=== PATIENT | male | born 1935 | race Caucasian/White ===

== ENCOUNTER 2016-08-03 09:56 | Emergency (ER) | payer MEDICARE, OTHER ==
[2016-08-03] MEDS ORDERED: Meclizine HCl 25 MG TAB ONE (10:50)
--- NOTE | 2016-08-03 11:57 | CT ---
CT BRAIN WITHOUT CONTRAST: Date: 08/03/16 HISTORY: Fall, dizziness. FINDINGS: Comparison made with exam of 09/06/14. No evidence of acute infarct, hemorrhage, midline shift, or abnormal extra-axial fluid collections a re seen. The ventricular size is stable and the basilar cisterns are patent. The bony calvarium is i ntact. The visualized paranasal sinuses and mastoid air cells are well aerated. IMPRESSION: No CT evidence of acute intracranial process. POS: OFF
== END 2016-08-03 11:50 | disposition home or self-care (01) ==
LOC: MADERS 09:56
DX: H81.10 Benign paroxysmal vertigo, unspecified ear (principal); I10 Essential (primary) hypertension; Z79.899 Other long term (current) drug therapy
CPT/HCPCS: 70450

== ENCOUNTER 2017-04-01 16:42 | Emergency (ER) | payer MEDICARE, OTHER ==
[2017-04-01] MEDS ORDERED: Amoxicillin/Potassium Clav 875 MG TAB ONE (18:19)
[2017-04-01] MEDS ORDERED: Benzonatate 100 MG CAP ONE (18:19)
[2017-04-01] MEDS ORDERED: Dexamethasone 4 MG TAB ONE (18:19)
== END 2017-04-01 18:20 | disposition home or self-care (01) ==
LOC: MADERS 16:42
DX: J40 Bronchitis, not specified as acute or chronic (principal); J32.9 Chronic sinusitis, unspecified; I10 Essential (primary) hypertension; Z79.899 Other long term (current) drug therapy
CPT/HCPCS: 99283; J8540

== ENCOUNTER 2018-04-21 14:52 | Outpatient (CLI) | payer MEDICARE, OTHER ==
--- NOTE | 2018-04-21 16:20 | RAD ---
SIX VIEWS CERVICAL SPINE: 04/21/18 INDICATION: Headache with neck pain. COMPARISON: None. FINDINGS: Cervical spine is evaluated at C7 level on the lateral projection. Swimmer lateral projection evaluates cervical spine up to C7-T1. There is moderate multil evel disc degenerative disease and multilevel facet osteoarthritic change. Prevertebral soft tissues are normal appearing. Lung apices are clear. Lateral masses are symmetric. 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 POS: [id number]
== END 2018-04-21 14:53 | disposition home or self-care (01) ==
LOC: MADRAD 14:52
PROVIDERS: ATTEND Family Medicine
DX: M54.2 Cervicalgia (principal); M47.812 Spondylosis without myelopathy or radiculopathy, cervical region
CPT/HCPCS: 72052

== ENCOUNTER 2019-01-15 16:13 | Emergency (ER) | payer MEDICARE, OTHER ==
[~2019-01-15 16:13] MED LIST: Iopamidol 370 76% 100 ML VIAL ONE
[2019-01-15] MEDS ORDERED: Morphine 4 MG/ML VIAL ONE (16:39)
[2019-01-15 16:41] LABS: Bilirubin Negative (Negative); Blood, Urine Negative (Negative); Clarity Hazy (Clear); Glucose, Urine (Dipstick) Negative (Negative); Leukocyte Small (Negative); Nitrite Negative (Negative); Protein, Urine (Dipstick) Negative (Neg-Trace); RBC/HPF 0-3 HPF (0-3); Urobilinogen 0.2 mg/dL (Less than 2); WBC/HPF 21-50 HPF (0-3)
[2019-01-15 16:42] LABS: Bacteria/HPF 1+ HPF (None Seen); Squamous Epithelial 0-3 HPF (0-3)
[2019-01-15 16:53] LABS: #Basophils 0.1 thou/uL (0.0-0.2); #Monocytes 0.4 thou/uL (0.11-0.59); #Neutrophils 2.9 thou/uL (1.40-6.50); %Basophils 1.7 % (0.0-1.0); %Eosinophils 0.7 % (0.0-10.0); %Lymphocytes 22.9 % (21.0-51.0); %Monocytes 9.7 % (0.0-10.0); Hemoglobin 15.3 g/dL (14.0-18.0); Mean Corpuscular Hemoglobin 30.3 pg (27.0-31.0); Mean Corpuscular Volume 91.7 fL (78.0-98.0); Platelet Count 129 thou/uL (130-400); RBC Distribution Width 12.1 % (11.5-14.5); Red Blood Cell (RBC) Count 5.04 mill/uL (4.70-6.10); White Blood Cell (WBC) Count 4.5 thou/uL (4.8-10.8)
[2019-01-15] MEDS ORDERED: cefTRIAXone\\ROCEPHIN 1 GM VIAL ONE (17:07)
[2019-01-15] MEDS ORDERED: Sodium Chloride 0.9% 100 ML ONE (17:07)
[2019-01-15 17:08] LABS: ALT (SGPT) 30 U/L (8-55); AST (SGOT) 28 U/L (5-34); Albumin 4.1 g/dL (3.4-4.8); Alkaline Phosphatase 73 U/L (40-110); Anion Gap 13 mmol/L (10-20); BUN (Urea Nitrogen) 11 mg/dL (8.4-25.7); Bilirubin, Total 0.7 mg/dL (0.2-1.2); Calc. Creatinine Clearance 0 mL/min (70-130); Calcium 9.4 mg/dL (7.8-10.44); Carbon Dioxide 25 mmol/L (23-31); Chloride 107 mmol/L (98-107); Estimated GFR-MDRD 83; Globulin 2.9 g/dL (2.4-3.5); Glucose 91 mg/dL (83-110); Lipase 23 U/L (8-78); Sodium 141 mmol/L (136-145)
[2019-01-15] MEDS ORDERED: Acetaminophen 500 MG TAB ONE (18:30)
--- NOTE | 2019-01-15 20:15 | CT ---
CT ABDOMEN AND PELVIS WITH IV CONTRAST: History: Right lower quadrant pain. Comparison: CT abdomen, 12-28-14 FINDINGS: Images through the lung bases again show a fluid density along the right mediastinum which is only pa rtially imaged. 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 The lung bas es otherwise appear clear. Liver, spleen, and pancreas unremarkable. Stomach and duodenum unremarkable. Post cholecystectomy cli ps. Adrenal glands normal. The kidneys are unremarkable. A small nonobstructing calculus in the lower pole of the right kidney m easures 3-4 mm. Ureters are unremarkable. Urinary bladder is mildly distended and unremarkable. Mild prosthetic hypertrophy. Small bowel loops appear normal. The appendix appears normal. Stool throughout the colon with scatter ed diverticula. Aorta normal caliber. IMPRESSION: No acute process identified. POS: OFF
== END 2019-01-15 18:41 | disposition home or self-care (01) ==
LOC: MADERS 16:13
DX: N30.00 Acute cystitis without hematuria (principal); N40.0 Benign prostatic hyperplasia without lower urinary tract symptoms; I10 Essential (primary) hypertension; Z79.899 Other long term (current) drug therapy
CPT/HCPCS: 74177; 80053; 81001; 83605; 83690; 85025; 87077; 87086; 87186; 96365; J0696; J2270; J3490; Q9967

== ENCOUNTER 2019-04-21 09:32 | Emergency (ER) | payer MEDICARE, OTHER ==
[2019-04-21] MEDS ORDERED: Sodium Chloride 0.9% 1,000 ML ONE (10:29)
[2019-04-21] MEDS ORDERED: Ondansetron PF 4 MG/2 ML Vial ONE (10:29)
[2019-04-21] MEDS ORDERED: Morphine 2 MG/ML SYRINGE ONE (10:29)
[2019-04-21 10:33] LABS: #Lymphocytes 1.1 thou/uL (1.20-3.40); #Monocytes 0.5 thou/uL (0.11-0.59); #Neutrophils 3.1 thou/uL (1.40-6.50); %Eosinophils 0.7 % (0.0-10.0); %Lymphocytes 22.8 % (21.0-51.0); %Monocytes 10.4 % (0.0-10.0); %Neutrophils 65.1 % (42.0-75.0); Mean Corpuscular HGB CONC 30.6 g/dL (32.0-36.0); Mean Corpuscular Hemoglobin 29.6 pg (27.0-31.0); Mean Corpuscular Volume 96.7 fL (78.0-98.0); Mean Platelet Volume 7.1 fL (7.4-10.4); Platelet Count 148 thou/uL (130-400); RBC Distribution Width 12.4 % (11.5-14.5); Red Blood Cell (RBC) Count 5.07 mill/uL (4.70-6.10); White Blood Cell (WBC) Count 4.8 thou/uL (4.8-10.8)
[2019-04-21 10:45] LABS: ALT (SGPT) 46 U/L (8-55); AST (SGOT) 35 U/L (5-34); Albumin 4.1 g/dL (3.4-4.8); Alkaline Phosphatase 71 U/L (40-110); Anion Gap 13 mmol/L (10-20); BUN (Urea Nitrogen) 11 mg/dL (8.4-25.7); Bilirubin, Total 1.1 mg/dL (0.2-1.2); Calc. Creatinine Clearance 0 mL/min (70-130); Calcium 9.3 mg/dL (7.8-10.44); Carbon Dioxide 26 mmol/L (23-31); Chloride 106 mmol/L (98-107); Estimated GFR-MDRD 77; Globulin 2.9 g/dL (2.4-3.5); Glucose 94 mg/dL (83-110); Lipase 14 U/L (8-78); Potassium 4.3 mmol/L (3.5-5.1); Sodium 141 mmol/L (136-145)
[2019-04-21 11:55] LABS: Bilirubin Negative (Negative); Blood, Urine Trace (Negative); Glucose, Urine (Dipstick) Negative (Negative); Leukocyte Moderate (Negative); Nitrite Negative (Negative); Protein, Urine (Dipstick) Negative (Neg-Trace); Urobilinogen 0.2 mg/dL (Less than 2)
[2019-04-21 11:59] LABS: Bacteria/HPF 1+ HPF (None Seen); Clarity Hazy (Clear); Squamous Epithelial 0-3 HPF (0-3); WBC/HPF 21-50 HPF (0-3)
--- NOTE | 2019-04-21 12:26 | CT ---
CT ABDOMEN AND PELVIS WITH ORAL AND IV CONTRAST: HISTORY: Right lower quadrant pain. COMPARISON: 01/15/2019 FINDINGS: There are dependent changes in the lung bases. The patient is post cholecystectomy. 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 Calcified granulomas in the spleen are again noted. The liver, pancreas, adrenal glands and kidneys a ppear unremarkable, except for a nonobstructing 3-4 mm calculus in the inferior pole of the right kid cheryl. No free air, free fluid or lymphadenopathy is seen in the abdomen or pelvis. There are vascular calci fications without evidence of aneurysmal dilatation of the abdominal aorta. The small bowel loops are not abnormally dilated. A normal appearing appendix is seen. The prostate is enlarged. There are deg enerative changes of the spine. A small hiatal hernia is again noted. There is colonic diverticulosis without diverticulitis. IMPRESSION: No acute process. POS: T[facility]
[2019-04-21] MEDS ORDERED: Iopamidol 370 76% 100 ML VIAL ONE (13:10)
== END 2019-04-21 12:46 | disposition home or self-care (01) ==
LOC: MADERS 09:32
DX: N30.00 Acute cystitis without hematuria (principal); K44.9 Diaphragmatic hernia without obstruction or gangrene; N20.0 Calculus of kidney; N40.0 Benign prostatic hyperplasia without lower urinary tract symptoms; R93.89 Abnormal findings on diagnostic imaging of other specified body structures; I10 Essential (primary) hypertension; Z79.899 Other long term (current) drug therapy; Z79.82 Long term (current) use of aspirin
CPT/HCPCS: 74177; 80053; 81003; 81015; 83605; 83690; 85025; 87077; 87086; 87186; 96361; 96374; 96375; J2270; J2405; J7050; Q9967

== ENCOUNTER 2019-12-29 11:17 | Emergency (ER) | payer MEDICARE, OTHER ==
[2019-12-29 11:47] LABS: #Lymphocytes 0.9 thou/uL (1.20-3.40); #Monocytes 0.4 thou/uL (0.11-0.59); #Neutrophils 1.8 thou/uL (1.40-6.50); %Basophils 1.6 % (0.0-1.0); %Eosinophils 1.1 % (0.0-10.0); %Lymphocytes 28.1 % (21.0-51.0); %Monocytes 13.3 % (0.0-10.0); Hemoglobin 14.2 g/dL (14.0-18.0); Mean Corpuscular HGB CONC 31.9 g/dL (32.0-36.0); Mean Corpuscular Volume 93.9 fL (78.0-98.0); Platelet Count 144 thou/uL (130-400); RBC Distribution Width 11.8 % (11.5-14.5); Red Blood Cell (RBC) Count 4.73 mill/uL (4.70-6.10); White Blood Cell (WBC) Count 3.2 thou/uL (4.8-10.8)
[2019-12-29 12:01] LABS: ALT (SGPT) 57 U/L (8-55); AST (SGOT) 46 U/L (5-34); Albumin 3.7 g/dL (3.4-4.8); Alkaline Phosphatase 66 U/L (40-110); Anion Gap 15 mmol/L (10-20); BUN (Urea Nitrogen) 14 mg/dL (8.4-25.7); Bilirubin, Total 0.8 mg/dL (0.2-1.2); Calc. Creatinine Clearance 0 mL/min (70-130); Carbon Dioxide 22 mmol/L (23-31); Chloride 107 mmol/L (98-107); Estimated GFR-MDRD 69; Globulin 2.6 g/dL (2.4-3.5); Glucose 97 mg/dL (83-110); Protein, Total 6.3 g/dL (5.8-8.1); Sodium 140 mmol/L (136-145)
--- NOTE | 2019-12-29 12:09 | RAD ---
EXAM: CHEST ONE VIEW HISTORY: Dyspnea COMPARISON: 11/21/2019 FINDINGS: Dual-lead left subclavian cardiac pacemaking device remains in place. Cardiac silhouette is magnified by projection but stable in size. The pulmonary vasculature is within normal limits. The lungs are clear. Mild degenerative changes are seen in the spine. Chest is stable compared to prior exam. IMPRESSION: No acute cardiopulmonary process.
== END 2019-12-29 15:55 | disposition home or self-care (01) ==
LOC: MADERS 11:17
DX: R07.9 Chest pain, unspecified (principal); N40.0 Benign prostatic hyperplasia without lower urinary tract symptoms; I10 Essential (primary) hypertension; Z87.442 Personal history of urinary calculi; Z79.82 Long term (current) use of aspirin; Z79.899 Other long term (current) drug therapy
CPT/HCPCS: 71045; 80053; 83880; 84484; 85025; 93005

== ENCOUNTER 2020-05-10 08:20 | Emergency (ER) | payer MEDICARE, OTHER ==
[2020-05-10] MEDS ORDERED: Boostrix 0.5 ML (Tdap) VIAL ONE (08:48)
== END 2020-05-10 09:09 | disposition home or self-care (01) ==
LOC: MADERS 08:20
DX: S61.452A Open bite of left hand, initial encounter (principal); L03.113 Cellulitis of right upper limb; N40.0 Benign prostatic hyperplasia without lower urinary tract symptoms; I10 Essential (primary) hypertension; Z79.82 Long term (current) use of aspirin; Z87.442 Personal history of urinary calculi; Z79.899 Other long term (current) drug therapy; W55.01XA Bitten by cat, initial encounter
CPT/HCPCS: 90471; 90715

== ENCOUNTER 2021-08-08 09:21 | Emergency (ER) | payer MEDICARE, OTHER ==
[~2021-08-08 09:21] MED LIST changes: -Iopamidol 370 76% 100 ML VIAL ONE; +Sodium Chloride 0.9% 100 ML BAG ONE
[2021-08-08 10:42] LABS: PTT 28.8 sec (22.9-36.1); Prothrombin Time 13.4 sec (12.0-14.7)
[2021-08-08 10:50] LABS: #Eosinphils 0.1 thou/uL (0.0-0.7); #Monocytes 0.5 thou/uL (0.11-0.59); %Eosinophils 1.2 % (0.0-10.0); %Lymphocytes 21.6 % (21.0-51.0); %Monocytes 11.4 % (0.0-10.0); %Neutrophils 64.9 % (42.0-75.0); Hemoglobin 14.7 g/dL (14.0-18.0); Mean Corpuscular Hemoglobin 29.9 pg (27.0-31.0); Mean Corpuscular Volume 96.3 fL (78.0-98.0); Mean Platelet Volume 10.3 fL (7.4-10.4); Platelet Count 114 thou/uL (130-400); Platelet Morphology Comment Appears Decreased; RBC Distribution Width 12.6 % (11.5-14.5); RBC Morphology Normal; Red Blood Cell (RBC) Count 4.94 mill/uL (4.70-6.10); White Blood Cell (WBC) Count 4.6 thou/uL (4.8-10.8)
[2021-08-08 10:52] LABS: ALT (SGPT) 22 U/L (8-55); AST (SGOT) 26 U/L (5-34); Albumin 3.8 g/dL (3.4-4.8); Alkaline Phosphatase 68 U/L (40-110); Anion Gap 13 mmol/L (10-20); BUN (Urea Nitrogen) 11 mg/dL (8.4-25.7); Bilirubin, Total 1.5 mg/dL (0.2-1.2); CK (CPK) 63 U/L (30-200); Calc. Creatinine Clearance 0 mL/min (70-130); Carbon Dioxide 26 mmol/L (23-31); Chloride 106 mmol/L (98-107); Globulin 2.7 g/dL (2.4-3.5); Glucose 92 mg/dL (83-110); Lipase 15 U/L (8-78); Potassium 4.3 mmol/L (3.5-5.1); Protein, Total 6.5 g/dL (5.8-8.1); Sodium 141 mmol/L (136-145)
[2021-08-08 11:12] LABS: Bilirubin Negative (Negative); Blood, Urine Trace (Negative); Clarity Slightly Cloudy (Clear); Glucose, Urine (Dipstick) Negative (Negative); Ketone, Urine Negative (Negative); Leukocyte Moderate (Negative); Nitrite Negative (Negative); Protein, Urine (Dipstick) Negative (Neg-Trace)
[2021-08-08] MEDS ORDERED: Iopamidol 370 76% 125 ML VIAL FS ONE (11:12)
[2021-08-08 11:13] LABS: Bacteria/HPF 2+ HPF (None Seen); RBC/HPF 0-3 HPF (0-3); WBC/HPF Greater Than 50 HPF (0-3)
[2021-08-08] MEDS ORDERED: Sodium Chloride 0.9% 100 ML ONE (12:17)
[2021-08-08] MEDS ORDERED: cefTRIAXone\\ROCEPHIN 1 GM VIAL ONE (12:17)
== END 2021-08-08 12:40 | disposition home or self-care (01) ==
LOC: MADERS 09:21
DX: N41.0 Acute prostatitis (principal); R59.0 Localized enlarged lymph nodes; R10.13 Epigastric pain; I10 Essential (primary) hypertension; Z79.82 Long term (current) use of aspirin; Z79.899 Other long term (current) drug therapy; E78.5 Hyperlipidemia, unspecified
CPT/HCPCS: 36415; 71275; 74174; 80053; 81003; 81015; 82550; 83605; 83690; 84484; 85025; 85610; 85730; 87077; 87086; 87186; 93005; 96374; J0696; J3490; Q9967

== ENCOUNTER 2021-12-26 18:04 | Emergency (ER) | payer MEDICARE, OTHER ==
[2021-12-26] MEDS ORDERED: Doxycycline 100 MG CAP ONE (20:40)
== END 2021-12-26 20:46 | disposition home or self-care (01) ==
LOC: MADERS 18:04
DX: U07.1 COVID-19 (principal); J12.82 Pneumonia due to coronavirus disease 2019; E78.00 Pure hypercholesterolemia, unspecified; M32.8 Other forms of systemic lupus erythematosus; E55.9 Vitamin D deficiency, unspecified; I10 Essential (primary) hypertension; Z87.442 Personal history of urinary calculi; Z95.0 Presence of cardiac pacemaker; Z79.82 Long term (current) use of aspirin; Z79.899 Other long term (current) drug therapy
CPT/HCPCS: 71046

== ENCOUNTER 2022-01-08 09:33 | Outpatient (CLI) | payer MEDICARE, OTHER | END 2022-01-08 09:34 | disposition home or self-care (01) | LOC: MADRAD 09:33 | PROVIDERS: ATTEND Family Medicine | DX: U07.1 COVID-19 (principal); J12.82 Pneumonia due to coronavirus disease 2019 | CPT/HCPCS: 71046 ==

== ENCOUNTER 2022-01-26 13:00 | Outpatient (CLI) | payer MEDICARE, OTHER | END 2022-01-26 13:01 | disposition home or self-care (01) | LOC: MADLAB 13:00 → MADCT 13:01 | PROVIDERS: ATTEND Family Medicine | DX: F03.90 Unspecified dementia, unspecified severity, without behavioral disturbance, psychotic disturbance, mood disturbance, and anxiety (principal); G93.89 Other specified disorders of brain | CPT/HCPCS: 70450 ==

== ENCOUNTER 2022-07-09 08:55 | Emergency (ER) | payer MEDICARE, OTHER ==
[2022-07-09] MEDS ORDERED: Ketorolac Tromethamine 30 MG/ML VIAL ONE (10:05)
[2022-07-09] MEDS ORDERED: Ondansetron PF 4 MG/2 ML Vial ONE (10:05)
[2022-07-09 10:30] LABS: #Basophils 0.1 thou/uL (0.0-0.2); #Eosinphils 0.1 thou/uL (0.0-0.7); #Monocytes 0.5 thou/uL (0.11-0.59); #Neutrophils 3.9 thou/uL (1.40-6.50); %Basophils 1.1 % (0.0-1.0); %Eosinophils 1.2 % (0.0-10.0); %Lymphocytes 17.5 % (21.0-51.0); %Monocytes 9.1 % (0.0-10.0); %Neutrophils 71.1 % (42.0-75.0); Hemoglobin 14.8 g/dL (14.0-18.0); Mean Corpuscular HGB CONC 31.9 g/dL (32.0-36.0); Mean Corpuscular Hemoglobin 31.1 pg (27.0-31.0); Mean Corpuscular Volume 97.4 fl (78.0-98.0); Mean Platelet Volume 9.6 fL (7.4-10.4); Platelet Count 120 10x3/uL (130-400); RBC Distribution Width 12.4 % (11.5-14.5); Red Blood Cell (RBC) Count 4.75 mill/uL (4.70-6.10); White Blood Cell (WBC) Count 5.5 10x3/uL (4.8-10.8)
[2022-07-09 10:38] LABS: Bilirubin Negative (Negative); Blood, Urine Small (Negative); Clarity Slightly Cloudy (Clear); Glucose, Urine (Dipstick) Negative (Negative); Ketone, Urine Negative (Negative); Leukocyte Moderate (Negative); Nitrite Negative (Negative); Protein, Urine (Dipstick) Negative (Neg-Trace); Specific Gravity, Urine 1.025 (1.005-1.030); Urobilinogen 0.2 mg/dL (Less than 2)
[2022-07-09 10:46] LABS: ALT (SGPT) 18 U/L (8-55); AST (SGOT) 22 U/L (5-34); Albumin 3.9 g/dL (3.4-4.8); Alkaline Phosphatase 61 U/L (40-110); Anion Gap 12 mmol/L (10-20); BUN (Urea Nitrogen) 12 mg/dL (8.4-25.7); Bilirubin, Total 0.9 mg/dL (0.2-1.2); Calc. Creatinine Clearance 0 mL/min (70-130); Calcium 9.1 mg/dL (7.8-10.44); Carbon Dioxide 24 mmol/L (23-31); Chloride 107 mmol/L (98-107); Estimated GFR 85; Globulin 2.5 g/dL (2.4-3.5); Glucose 95 mg/dL (83-110); Potassium 4.2 mmol/L (3.5-5.1); Protein, Total 6.4 g/dL (5.8-8.1); Sodium 139 mmol/L (136-145)
[2022-07-09 10:59] LABS: Bacteria/HPF 1+ HPF (None Seen); RBC/HPF 0-3 HPF (0-3); Squamous Epithelial 0-3 HPF (0-3); WBC/HPF Greater than 50 HPF (0-3)
[2022-07-09] MEDS ORDERED: Sulfameth/Trimethoprim DS 800-160mg TAB ONE (11:35)
== END 2022-07-09 11:46 | disposition home or self-care (01) ==
LOC: MADERS 08:55
DX: N39.0 Urinary tract infection, site not specified (principal); I10 Essential (primary) hypertension; Z79.899 Other long term (current) drug therapy; Z79.82 Long term (current) use of aspirin
CPT/HCPCS: 74176; 80053; 81003; 81015; 85025; 87077; 87086; 96374; 96375; J1885; J2405

== ENCOUNTER 2022-07-11 18:26 | Emergency (ER) | payer MEDICARE, OTHER ==
[~2022-07-11 18:26] MED LIST changes: +Iopamidol 370 76% 100 ML VIAL ONE; -Sodium Chloride 0.9% 100 ML BAG ONE
[2022-07-11] MEDS ORDERED: Bisacodyl 10 MG SUPP ONE (19:14)
[2022-07-11] MEDS ORDERED: Sodium Chloride 0.9% 1,000 ML ONE ×2 (19:31→23:34)
[2022-07-11 19:44] LABS: Band 2 % (5-11); Eosinophils 1 % (0-10); Hemoglobin 14.6 g/dL (14.0-18.0); Lymphocytes 12 % (21-51); MDiff Complete? YES; Mean Corpuscular HGB CONC 32.5 g/dL (32.0-36.0); Mean Corpuscular Hemoglobin 31.5 pg (27.0-31.0); Mean Corpuscular Volume 96.8 fl (78.0-98.0); Mean Platelet Volume 9.7 fL (7.4-10.4); Monocytes 10 % (0-10); Neutrophil 72 % (42-75); Platelet Count 125 10x3/uL (130-400); Platelet Morphology Comment Appears Decreased; RBC Distribution Width 12.6 % (11.5-14.5); Reactive Lymphocytes 3 % (0-10); Red Blood Cell (RBC) Count 4.65 mill/uL (4.70-6.10); White Blood Cell (WBC) Count 5.3 10x3/uL (4.8-10.8)
[2022-07-11 19:48] LABS: ALT (SGPT) 18 U/L (8-55); AST (SGOT) 21 U/L (5-34); Albumin 4.2 g/dL (3.4-4.8); Alkaline Phosphatase 60 U/L (40-110); Anion Gap 14 mmol/L (10-20); BUN (Urea Nitrogen) 15 mg/dL (8.4-25.7); Bilirubin, Total 0.8 mg/dL (0.2-1.2); Calc. Creatinine Clearance 0 mL/min (70-130); Calcium 9.2 mg/dL (7.8-10.44); Carbon Dioxide 20 mmol/L (23-31); Chloride 107 mmol/L (98-107); Estimated GFR 62; Globulin 2.6 g/dL (2.4-3.5); Glucose 102 mg/dL (83-110); Potassium 4.2 mmol/L (3.5-5.1); Protein, Total 6.8 g/dL (5.8-8.1); Sodium 137 mmol/L (136-145)
[2022-07-11] MEDS ORDERED: Morphine 2 MG/ML VIAL ONE (20:25)
[2022-07-11 20:31] LABS: Bilirubin Negative (Negative); Blood, Urine Trace (Negative); Clarity Clear (Clear); Glucose, Urine (Dipstick) Negative (Negative); Ketone, Urine Trace mg/dL (Negative); Leukocyte Negative (Negative); Nitrite Negative (Negative); Protein, Urine (Dipstick) Negative (Neg-Trace); Urobilinogen 0.2 mg/dL (Less than 2); pH, Urine 5.5 (5.0-9.0)
[2022-07-11 20:41] LABS: Bacteria/HPF Rare-Few HPF (None Seen); Mucous/LPF Rare LPF (<2+); RBC/HPF 0-3 HPF (0-3); Specific Gravity, Urine 1.024 (1.002-1.036); Squamous Epithelial 0-3 HPF (0-3)
[2022-07-11] MEDS ORDERED: Mineral Oil ENEMA ONE (20:58)
[2022-07-11] MEDS ORDERED: Polyethylene Glycol 3350 17 GM Packet PO SCH (21:15)
[2022-07-11] MEDS ORDERED: Ondansetron PF 4 MG/2 ML Vial ONE (22:13)
== END 2022-07-12 01:48 | disposition home or self-care (01) ==
LOC: MADERS 18:26
DX: K59.00 Constipation, unspecified (principal); E86.0 Dehydration; N39.0 Urinary tract infection, site not specified; E78.00 Pure hypercholesterolemia, unspecified; I10 Essential (primary) hypertension; Z79.82 Long term (current) use of aspirin
CPT/HCPCS: 51701; 74177; 81003; 81015; 82274; 85025; 96374; 96375; J2272; J2405; J7050; Q9967

== ENCOUNTER 2022-07-15 02:32 | Emergency (ER) | payer MEDICARE, OTHER | END 2022-07-15 03:23 | disposition home or self-care (01) | LOC: MADERS 02:32 | DX: Z46.6 Encounter for fitting and adjustment of urinary device (principal); E78.00 Pure hypercholesterolemia, unspecified; I10 Essential (primary) hypertension; Z79.899 Other long term (current) drug therapy; Z79.82 Long term (current) use of aspirin | CPT/HCPCS: 51702 ==

== ENCOUNTER 2022-11-23 05:20 | Emergency (ER) | payer MEDICARE, OTHER ==
[2022-11-23 05:38] LABS: #Basophils 0.1 thou/uL (0.0-0.2); #Lymphocytes 1.1 thou/uL (1.20-3.40); #Monocytes 0.6 thou/uL (0.11-0.59); #Neutrophils 3.8 thou/uL (1.40-6.50); %Basophils 1.9 % (0.0-1.0); %Eosinophils 0.9 % (0.0-10.0); %Lymphocytes 19.4 % (21.0-51.0); %Neutrophils 67.8 % (42.0-75.0); Hematocrit 43.5 % (42.0-52.0); Hemoglobin 14.2 g/dL (14.0-18.0); Mean Corpuscular HGB CONC 32.7 g/dL (32.0-36.0); Mean Corpuscular Hemoglobin 31.5 pg (27.0-31.0); Mean Corpuscular Volume 96.2 fl (78.0-98.0); Mean Platelet Volume 8.4 fL (7.4-10.4); Platelet Count 129 10x3/uL (130-400); RBC Distribution Width 14.2 % (11.5-14.5); Red Blood Cell (RBC) Count 4.52 mill/uL (4.70-6.10); White Blood Cell (WBC) Count 5.6 10x3/uL (4.8-10.8)
[2022-11-23 05:54] LABS: ALT (SGPT) 14 U/L (8-55); AST (SGOT) 20 U/L (5-34); Alkaline Phosphatase 69 U/L (40-110); Anion Gap 13 mmol/L (10-20); BUN (Urea Nitrogen) 13 mg/dL (8.4-25.7); Bilirubin, Total 1.5 mg/dL (0.2-1.2); Calc. Creatinine Clearance 0 mL/min (70-130); Calcium 9.2 mg/dL (7.8-10.44); Carbon Dioxide 26 mmol/L (23-31); Chloride 108 mmol/L (98-107); Estimated GFR 72; Globulin 2.6 g/dL (2.4-3.5); Glucose 89 mg/dL (83-110); Potassium 4.1 mmol/L (3.5-5.1); Protein, Total 6.6 g/dL (5.8-8.1); Sodium 143 mmol/L (136-145)
[2022-11-23] MEDS ORDERED: Aspirin Chewable 81 MG TAB ONE ×2 (05:54→05:55)
[2022-11-23 06:00] LABS: Troponin I 0.025 ng/mL (< 0.028)
[2022-11-23] MEDS ORDERED: Furosemide 20 MG/2 ML VIAL ONE (06:47)
[2022-11-23 08:54] LABS: Troponin I 0.037 ng/mL (< 0.028)
== END 2022-11-23 09:07 | disposition short-term general hospital (02) ==
LOC: MADERS 05:20
DX: I11.0 Hypertensive heart disease with heart failure (principal); I50.9 Heart failure, unspecified; I34.0 Nonrheumatic mitral (valve) insufficiency; R93.1 Abnormal findings on diagnostic imaging of heart and coronary circulation; E78.00 Pure hypercholesterolemia, unspecified; Z79.899 Other long term (current) drug therapy; Z79.82 Long term (current) use of aspirin
CPT/HCPCS: 71045; 80053; 83880; 84484; 85025; 85379; 93005; 96374; J1940

== ENCOUNTER 2023-01-22 20:52 | Emergency (ER) | payer MEDICARE, OTHER ==
[2023-01-22 22:47] LABS: SARS-CoV-2 NAA Rapid Test Not Detected (NotDetected)
[2023-01-22] MEDS ORDERED: Promethazine HCl 6.25 MG/5 ML Syrup ONE (22:56)
[2023-01-22] MEDS ORDERED: Bacitracin 1 PK ONE (22:56)
[2023-01-22] MEDS ORDERED: Boostrix 0.5 ML (Tdap) VIAL (>/=7 yrs of age) ONE (22:56)
[2023-01-22] MEDS ORDERED: Lactated Ringer's 1,000 ML ONE (22:56)
[2023-01-22] MEDS ORDERED: Acetaminophen 325 MG TAB ONE (22:56)
[2023-01-22] MEDS ORDERED: Promethazine HCl 25 MG/ML VIAL ONE (22:58)
[2023-01-22 23:02] LABS: Band 3 % (5-11); Hematocrit 41.7 % (42.0-52.0); Hemoglobin 13.7 g/dL (14.0-18.0); Lymphocytes 2 % (21-51); MDiff Complete? YES; Mean Corpuscular HGB CONC 32.9 g/dL (32.0-36.0); Mean Corpuscular Hemoglobin 31.6 pg (27.0-31.0); Mean Corpuscular Volume 96.1 fl (78.0-98.0); Monocytes 7 % (0-10); Neutrophil 88 % (42-75); Platelet Adequacy Comment Appears Decreased; Platelet Count 97 10x3/uL (130-400); RBC Distribution Width 12.5 % (11.5-14.5); Red Blood Cell (RBC) Count 4.34 mill/uL (4.70-6.10); White Blood Cell (WBC) Count 10.9 10x3/uL (4.8-10.8)
[2023-01-22 23:03] LABS: INR-International Normal Ratio 1.2; Prothrombin Time 15.8 sec (12.0-14.7)
[2023-01-22 23:13] LABS: Troponin I 0.014 ng/mL (< 0.028)
[2023-01-22 23:18] LABS: ALT (SGPT) 16 U/L (8-55); AST (SGOT) 33 U/L (5-34); Albumin 3.7 g/dL (3.4-4.8); Alkaline Phosphatase 74 U/L (40-110); Anion Gap 17 mmol/L (10-20); BUN (Urea Nitrogen) 24 mg/dL (8.4-25.7); Bilirubin, Total 1.4 mg/dL (0.2-1.2); CK (CPK) 378 U/L (30-200); Calc. Creatinine Clearance 0 mL/min (70-130); Calcium 8.7 mg/dL (7.8-10.44); Carbon Dioxide 20 mmol/L (23-31); Chloride 101 mmol/L (98-107); Estimated GFR 51; Globulin 2.4 g/dL (2.4-3.5); Glucose 105 mg/dL (83-110); Potassium 4.1 mmol/L (3.5-5.1); Protein, Total 6.1 g/dL (5.8-8.1); Sodium 134 mmol/L (136-145)
[2023-01-22 23:26] LABS: Bilirubin Small (Negative); Blood, Urine Moderate (Negative); Clarity Turbid (Clear); Glucose, Urine (Dipstick) Negative (Negative); Ketone, Urine Trace mg/dL (Negative); Leukocyte Small (Negative); Nitrite Negative (Negative); Protein, Urine (Dipstick) > or equal to 300 mg/dL (Neg-Trace); pH, Urine 5.5 (5.0-9.0)
[2023-01-22 23:31] LABS: Bacteria/HPF 3+ HPF (None Seen); CAUTI Indications for Culture Urological Procedure; Specific Gravity, Urine 1.026 (1.002-1.036); WBC/HPF Greater than 50 HPF (0-3)
[2023-01-22 23:32] LABS: Urine Culture Reflex Yes Yes
[2023-01-22 23:32] LABS: Lipase Less than 4 U/L (8-78)
[2023-01-23] MEDS ORDERED: Nitrofurantoin Monohyd/M-Cryst 100 MG CAP ONE (00:44)
[2023-01-23] MEDS ORDERED: Lactated Ringer's 1,000 ML ONE (01:15)
== END 2023-01-23 03:30 ==
LOC: MADERS 20:52
DX: G91.9 Hydrocephalus, unspecified (principal); N17.9 Acute kidney failure, unspecified; R82.71 Bacteriuria; E86.0 Dehydration; D61.818 Other pancytopenia; S50.311A Abrasion of right elbow, initial encounter; I10 Essential (primary) hypertension; E78.00 Pure hypercholesterolemia, unspecified; Z79.899 Other long term (current) drug therapy; Z79.82 Long term (current) use of aspirin; Z20.822 Contact with and (suspected) exposure to COVID-19; Z23 Encounter for immunization; W19.XXXA Unspecified fall, initial encounter
CPT/HCPCS: 0240U; 70450; 71101; 72125; 72170; 73030; 73080; 80053; 81001; 82550; 83690; 83735; 84484; 85025; 85610; 85730; 87086; 90715; 93005; 94760; 90471; 96361; 96365; J2550; J7120

== ENCOUNTER 2023-02-21 15:19 | Emergency (ER) | payer MEDICARE, OTHER ==
[2023-02-21] MEDS ORDERED: Sodium Chloride 0.9% 1,000 ML ONE (16:07)
[2023-02-21 16:18] LABS: #Basophils 0.1 thou/uL (0.0-0.2); #Lymphocytes 0.8 thou/uL (1.20-3.40); #Monocytes 0.6 thou/uL (0.11-0.59); %Eosinophils 0.6 % (0.0-10.0); %Lymphocytes 10.5 % (21.0-51.0); %Monocytes 8.4 % (0.0-10.0); %Neutrophils 79.4 % (42.0-75.0); Hematocrit 38.9 % (42.0-52.0); Hemoglobin 13.4 g/dL (14.0-18.0); Mean Corpuscular HGB CONC 34.5 g/dL (32.0-36.0); Mean Corpuscular Volume 95.8 fl (78.0-98.0); Mean Platelet Volume 7.2 fL (7.4-10.4); Platelet Count 144 10x3/uL (130-400); RBC Distribution Width 12.6 % (11.5-14.5); Red Blood Cell (RBC) Count 4.07 mill/uL (4.70-6.10); White Blood Cell (WBC) Count 7.6 10x3/uL (4.8-10.8)
[2023-02-21 16:32] LABS: ALT (SGPT) 12 U/L (8-55); AST (SGOT) 15 U/L (5-34); Albumin 3.2 g/dL (3.4-4.8); Alkaline Phosphatase 70 U/L (40-110); Anion Gap 15 mmol/L (10-20); BUN (Urea Nitrogen) 17 mg/dL (8.4-25.7); Bilirubin, Total 0.7 mg/dL (0.2-1.2); Calc. Creatinine Clearance 0 mL/min (70-130); Calcium 8.8 mg/dL (7.8-10.44); Carbon Dioxide 23 mmol/L (23-31); Chloride 105 mmol/L (98-107); Estimated GFR 62; Glucose 123 mg/dL (83-110); Lipase 19 U/L (8-78); Potassium 3.8 mmol/L (3.5-5.1); Protein, Total 6.2 g/dL (5.8-8.1); Sodium 139 mmol/L (136-145)
[2023-02-21 16:33] LABS: Troponin I 0.166 ng/mL (< 0.028)
[2023-02-21] MEDS ORDERED: Aspirin Chewable 81 MG TAB ONE (17:12)
[2023-02-21 18:39] LABS: Troponin I 0.145 ng/mL (< 0.028)
[2023-02-21 19:02] LABS: Bilirubin Negative (Negative); Blood, Urine Negative (Negative); Clarity Cloudy (Clear); Glucose, Urine (Dipstick) Negative (Negative); Ketone, Urine Trace mg/dL (Negative); Leukocyte Small (Negative); Nitrite Negative (Negative); Protein, Urine (Dipstick) 30 mg/dL (Neg-Trace)
[2023-02-21 19:05] LABS: CAUTI Indications for Culture Pelvic or flank pain
[2023-02-21 19:07] LABS: Bacteria/HPF 2+ HPF (None Seen); RBC/HPF 0-3 HPF (0-3); WBC/HPF Greater Than 50 HPF (0-3)
[2023-02-21 19:09] LABS: Urine Culture Reflex Yes Yes
[2023-02-21] MEDS ORDERED: Sodium Chloride 0.9% 100 ML ONE (19:23)
[2023-02-21] MEDS ORDERED: cefTRIAXone (ROCEPHIN) 1 GM VIAL ONE (19:23)
== END 2023-02-22 00:50 | disposition short-term general hospital (02) ==
LOC: MADERS 15:19
DX: I21.4 Non-ST elevation (NSTEMI) myocardial infarction (principal); I11.0 Hypertensive heart disease with heart failure; I50.9 Heart failure, unspecified; R55 Syncope and collapse; E78.5 Hyperlipidemia, unspecified; Z79.899 Other long term (current) drug therapy
CPT/HCPCS: 71045; 80053; 81001; 83605; 83690; 83880; 84484; 85025; 87077; 87086; 87186; 93005; 96361; 96365; 96372; J0696; J1650; J3490; J7050

== ENCOUNTER 2023-02-28 22:21 | Emergency (ER) | payer MEDICARE, OTHER ==
[2023-02-28 23:56] LABS: Hemoglobin 12.4 g/dL (14.0-18.0); Mean Corpuscular HGB CONC 32.7 g/dL (32.0-36.0); Mean Corpuscular Hemoglobin 31.1 pg (27.0-31.0); Mean Corpuscular Volume 95.1 fl (78.0-98.0); Platelet Count 142 10x3/uL (130-400); RBC Distribution Width 12.8 % (11.5-14.5); Red Blood Cell (RBC) Count 3.99 mill/uL (4.70-6.10); White Blood Cell (WBC) Count 8.2 10x3/uL (4.8-10.8)
[2023-03-01 00:06] LABS: Anion Gap 15 mmol/L (10-20); BUN (Urea Nitrogen) 14 mg/dL (8.4-25.7); Carbon Dioxide 23 mmol/L (23-31); Chloride 102 mmol/L (98-107); Potassium 4.2 mmol/L (3.5-5.1); Sodium 136 mmol/L (136-145)
[2023-03-01 00:07] LABS: ALT (SGPT) 12 U/L (8-55); AST (SGOT) 18 U/L (5-34); Albumin 3.1 g/dL (3.4-4.8); Alkaline Phosphatase 73 U/L (40-110); Bilirubin, Total 1.1 mg/dL (0.2-1.2); Calc. Creatinine Clearance 0 mL/min (70-130); Calcium 8.7 mg/dL (7.8-10.44); Estimated GFR 86; Globulin 3.1 g/dL (2.4-3.5); Glucose 120 mg/dL (83-110); Magnesium 1.9 mg/dL (1.6-2.6); Protein, Total 6.2 g/dL (5.8-8.1); Troponin I 0.013 ng/mL (< 0.028)
[2023-03-01 00:28] LABS: Band 4 % (5-11); Eosinophils 1 % (0-10); Lymphocytes 5 % (21-51); MDiff Complete? YES; Monocytes 5 % (0-10); Neutrophil 85 % (42-75); Platelet Adequacy Comment Appears Adequate
[2023-03-01 00:46] LABS: Bilirubin Negative (Negative); Blood, Urine Negative (Negative); Clarity Clear (Clear); Glucose, Urine (Dipstick) Negative (Negative); Ketone, Urine Negative (Negative); Leukocyte Trace (Negative); Nitrite Negative (Negative); Protein, Urine (Dipstick) 30 mg/dL (Neg-Trace); pH, Urine 5.5 (5.0-9.0)
[2023-03-01 00:54] LABS: Specific Gravity, Urine 1.019 (1.002-1.036)
[2023-03-01 00:55] LABS: Bacteria/HPF Rare-Few HPF (None Seen); CAUTI Indications for Culture Alt mental st,lethar; RBC/HPF 0-3 HPF (0-3); Urine Culture Reflex No No
[2023-03-01] MEDS ORDERED: Doxycycline 100 MG CAP ONE (10:48)
[2023-03-01] MEDS ORDERED: Sodium Chloride 0.9% 100 ML ONE (10:49)
[2023-03-01] MEDS ORDERED: cefTRIAXone (ROCEPHIN) 2 GM VIAL ONE (10:49)
[2023-03-01 11:01] LABS: Base Excess-Venous 1.7 mmol/L (-2.0 to 3.0); Bicarbonate (HCO3v) 24.8 mmol/L (22.0-28.0); CO2 Tension (PvCO2) 33.3 mmHg (42.0-51.0); Chloride 103 mmol/L (98-107); Hemoglobin - Calc 13.1 g/dL (14.0-18.0); Potassium 4.1 mmol/L (3.5-5.1); Sodium 136 mmol/L (138-145); vO2 Saturation-calc 98.3 % (60.0-85.0)
[2023-03-01 11:02] LABS: Calcium, Ionized 1.12 mmol/L (1.15-1.33); T. Carbon Dioxide 25.8 mmol/L (22.0-28.0)
== END 2023-03-01 17:20 | disposition short-term general hospital (02) ==
LOC: MADERS 22:21
DX: J18.9 Pneumonia, unspecified organism (principal); R41.82 Altered mental status, unspecified; M62.81 Muscle weakness (generalized); N39.0 Urinary tract infection, site not specified; I10 Essential (primary) hypertension; E78.00 Pure hypercholesterolemia, unspecified; Z79.899 Other long term (current) drug therapy; Z79.82 Long term (current) use of aspirin
CPT/HCPCS: 36415; 70450; 71045; 80053; 81001; 82330; 82435; 82550; 82803; 83605; 83735; 84132; 84295; 84443; 84484; 85014; 85025; 87040; 87077; 87149; 87186; 96361; 96365; J0696; J3490

== ENCOUNTER 2023-03-06 11:43 | Inpatient (IN) | payer MEDICARE, OTHER ==
[2023-03-06 12:33] VITALS: BMI 22.7
[2023-03-06] MEDS ORDERED: Senokot S 8.6-50 MG TAB PO PRN (13:07)
[2023-03-06] MEDS ORDERED: Calcium Carbonate 500 MG ChewTAB PO PRN (13:07)
[2023-03-06] MEDS ORDERED: Ondansetron ODT 4 MG TAB PO PRN (13:17)
[2023-03-06] MEDS ORDERED: Acetaminophen 325 MG TAB PO PRN (13:28)
[2023-03-06] MEDS: Famotidine 20 MG TAB PO SCH (20:32)
[2023-03-06] MEDS: Amoxicillin/Potassium Clav 875 MG TAB PO SCH ×3 (20:32→22:00)
[2023-03-06] MEDS: Hydroxychloroquine Sulfate 200 MG TAB PO SCH (20:33)
[2023-03-06] MEDS: Atorvastatin Calcium 10 MG TAB PO SCH (20:33)
[2023-03-06] MEDS: Doxycycline 100 MG CAP PO SCH ×3 (20:33→21:59)
[2023-03-06] MEDS: guaiFENesin ER 600 MG TAB PO SCH (20:33)
[2023-03-06] MEDS: Lisinopril 5 MG TAB PO SCH (20:33)
[2023-03-07] MEDS: Hydroxychloroquine Sulfate 200 MG TAB PO SCH ×2 (08:27→20:28)
[2023-03-07] MEDS: guaiFENesin ER 600 MG TAB PO SCH ×2 (08:27→20:28)
[2023-03-07] MEDS: Aspirin Chewable 81 MG TAB PO SCH (08:27)
[2023-03-07] MEDS: Multivitamin W/ Minerals 1 TAB PO SCH (08:27)
[2023-03-07] MEDS: Lisinopril 5 MG TAB PO SCH ×2 (08:27→20:28)
[2023-03-07] MEDS: Famotidine 20 MG TAB PO SCH ×2 (08:27→20:28)
[2023-03-07] MEDS: Amoxicillin/Potassium Clav 875 MG TAB PO SCH ×2 (08:27→20:28)
[2023-03-07] MEDS: Donepezil HCl 10 MG TAB PO SCH (08:27)
[2023-03-07] MEDS: Betamethasone 0.1% Cream 15 GM TUBE TOP SCH (08:28)
[2023-03-07] MEDS: Doxycycline 100 MG CAP PO SCH ×2 (08:28→20:28)
[2023-03-07] MEDS: Atorvastatin Calcium 10 MG TAB PO SCH (20:28)
[2023-03-08] MEDS: guaiFENesin ER 600 MG TAB PO SCH ×2 (09:04→20:06)
[2023-03-08] MEDS: Amoxicillin/Potassium Clav 875 MG TAB PO SCH ×2 (09:04→20:07)
[2023-03-08] MEDS: Doxycycline 100 MG CAP PO SCH ×2 (09:04→20:06)
[2023-03-08] MEDS: Hydroxychloroquine Sulfate 200 MG TAB PO SCH ×2 (09:04→20:07)
[2023-03-08] MEDS: Famotidine 20 MG TAB PO SCH ×2 (09:04→20:07)
[2023-03-08] MEDS: Aspirin Chewable 81 MG TAB PO SCH (09:04)
[2023-03-08] MEDS: Multivitamin W/ Minerals 1 TAB PO SCH (09:04)
[2023-03-08] MEDS: TRIAMCINOLONE 0.1% CREAM TOP SCH (12:00)
[2023-03-08] MEDS: Lisinopril 5 MG TAB PO SCH ×2 (12:08→20:07)
[2023-03-08] MEDS: Betamethasone 0.1% Cream 15 GM TUBE TOP SCH ×2 (12:09→14:18)
[2023-03-08] MEDS: Atorvastatin Calcium 10 MG TAB PO SCH (20:06)
[2023-03-09] MEDS: Lisinopril 5 MG TAB PO SCH ×2 (08:18→20:01)
[2023-03-09] MEDS: guaiFENesin ER 600 MG TAB PO SCH ×2 (08:19→20:02)
[2023-03-09] MEDS: Aspirin Chewable 81 MG TAB PO SCH (08:19)
[2023-03-09] MEDS: Multivitamin W/ Minerals 1 TAB PO SCH (08:19)
[2023-03-09] MEDS: Famotidine 20 MG TAB PO SCH ×2 (08:19→20:02)
[2023-03-09] MEDS: Hydroxychloroquine Sulfate 200 MG TAB PO SCH ×2 (08:19→20:01)
[2023-03-09] MEDS: Doxycycline 100 MG CAP PO SCH ×2 (08:19→20:02)
[2023-03-09] MEDS: Amoxicillin/Potassium Clav 875 MG TAB PO SCH ×2 (08:19→20:01)
[2023-03-09] MEDS: Donepezil HCl 10 MG TAB PO SCH (08:19)
[2023-03-09] MEDS ORDERED: FLU VACC QS2023(65UP)/MF59C/PF 60 MCG/0.5 ML SYRINGE IM ONE (13:30)
[2023-03-09] MEDS: Atorvastatin Calcium 10 MG TAB PO SCH (20:02)
[2023-03-09] MEDS: QUEtiapine 25 MG TAB PO PRN (20:02)
[2023-03-10] MEDS: Famotidine 20 MG TAB PO SCH ×2 (08:08→21:36)
[2023-03-10] MEDS: Aspirin Chewable 81 MG TAB PO SCH (08:08)
[2023-03-10] MEDS: Amoxicillin/Potassium Clav 875 MG TAB PO SCH ×2 (08:08→21:37)
[2023-03-10] MEDS: Multivitamin W/ Minerals 1 TAB PO SCH (08:08)
[2023-03-10] MEDS: guaiFENesin ER 600 MG TAB PO SCH ×2 (08:08→21:36)
[2023-03-10] MEDS: Hydroxychloroquine Sulfate 200 MG TAB PO SCH ×2 (08:08→21:36)
[2023-03-10] MEDS: Doxycycline 100 MG CAP PO SCH ×2 (08:08→21:37)
[2023-03-10] MEDS: Lisinopril 5 MG TAB PO SCH ×2 (08:12→21:36)
[2023-03-10] MEDS: TRIAMCINOLONE 0.1% CREAM TOP SCH (08:13)
[2023-03-10] MEDS: QUEtiapine 25 MG TAB PO PRN (21:36)
[2023-03-10] MEDS: Atorvastatin Calcium 10 MG TAB PO SCH (21:36)
[2023-03-11] MEDS: Donepezil HCl 10 MG TAB PO SCH (08:58)
[2023-03-11] MEDS: Doxycycline 100 MG CAP PO SCH ×2 (08:58→20:12)
[2023-03-11] MEDS: Multivitamin W/ Minerals 1 TAB PO SCH (08:58)
[2023-03-11] MEDS: Aspirin Chewable 81 MG TAB PO SCH (08:58)
[2023-03-11] MEDS: Lisinopril 5 MG TAB PO SCH ×2 (08:58→20:02)
[2023-03-11] MEDS: Hydroxychloroquine Sulfate 200 MG TAB PO SCH ×2 (08:58→20:12)
[2023-03-11] MEDS: Amoxicillin/Potassium Clav 875 MG TAB PO SCH ×2 (08:58→20:12)
[2023-03-11] MEDS: Famotidine 20 MG TAB PO SCH ×2 (08:59→20:12)
[2023-03-11] MEDS: guaiFENesin ER 600 MG TAB PO SCH ×2 (08:59→20:12)
[2023-03-11] MEDS: Atorvastatin Calcium 10 MG TAB PO SCH (20:12)
[2023-03-11] MEDS: QUEtiapine 25 MG TAB PO PRN (20:12)
[2023-03-12] MEDS: Aspirin Chewable 81 MG TAB PO SCH (08:09)
[2023-03-12] MEDS: Amoxicillin/Potassium Clav 875 MG TAB PO SCH ×2 (08:10→20:57)
[2023-03-12] MEDS: Multivitamin W/ Minerals 1 TAB PO SCH (08:10)
[2023-03-12] MEDS: Famotidine 20 MG TAB PO SCH ×2 (08:10→20:57)
[2023-03-12] MEDS: Lisinopril 5 MG TAB PO SCH (08:10)
[2023-03-12] MEDS: Doxycycline 100 MG CAP PO SCH ×2 (08:10→20:57)
[2023-03-12] MEDS: guaiFENesin ER 600 MG TAB PO SCH ×2 (08:10→20:57)
[2023-03-12] MEDS: Hydroxychloroquine Sulfate 200 MG TAB PO SCH ×2 (08:10→20:57)
[2023-03-12] MEDS: TRIAMCINOLONE 0.1% CREAM TOP SCH (08:11)
[2023-03-12] MEDS: QUEtiapine 25 MG TAB PO PRN (20:57)
[2023-03-12] MEDS: Atorvastatin Calcium 10 MG TAB PO SCH (20:57)
[2023-03-13] MEDS: guaiFENesin ER 600 MG TAB PO SCH (08:15)
[2023-03-13] MEDS: Donepezil HCl 10 MG TAB PO SCH (08:15)
[2023-03-13] MEDS: Doxycycline 100 MG CAP PO SCH (08:15)
[2023-03-13] MEDS: Amoxicillin/Potassium Clav 875 MG TAB PO SCH (08:16)
[2023-03-13] MEDS: Aspirin Chewable 81 MG TAB PO SCH (08:16)
[2023-03-13] MEDS: Hydroxychloroquine Sulfate 200 MG TAB PO SCH ×2 (08:16→20:56)
[2023-03-13] MEDS: Famotidine 20 MG TAB PO SCH ×2 (08:16→20:56)
[2023-03-13] MEDS: Multivitamin W/ Minerals 1 TAB PO SCH (08:16)
[2023-03-13] MEDS: QUEtiapine 25 MG TAB PO PRN (20:55)
[2023-03-13] MEDS: Atorvastatin Calcium 10 MG TAB PO SCH (20:56)
[2023-03-14] MEDS: Hydroxychloroquine Sulfate 200 MG TAB PO SCH ×2 (08:13→21:47)
[2023-03-14] MEDS: Famotidine 20 MG TAB PO SCH ×2 (08:13→21:47)
[2023-03-14] MEDS: Multivitamin W/ Minerals 1 TAB PO SCH (08:13)
[2023-03-14] MEDS: TRIAMCINOLONE 0.1% CREAM TOP SCH (08:13)
[2023-03-14] MEDS: Aspirin Chewable 81 MG TAB PO SCH (08:13)
[2023-03-14] MEDS: traZODone HCl 50 MG TAB PO PRN (21:47)
[2023-03-14] MEDS: Atorvastatin Calcium 10 MG TAB PO SCH (21:47)
[2023-03-14] MEDS ORDERED: Melatonin 3 MG TAB PO SCH (22:00)
[2023-03-15] MEDS: Donepezil HCl 10 MG TAB PO SCH (08:17)
[2023-03-15] MEDS: Aspirin Chewable 81 MG TAB PO SCH (08:17)
[2023-03-15] MEDS: Multivitamin W/ Minerals 1 TAB PO SCH (08:17)
[2023-03-15] MEDS: Famotidine 20 MG TAB PO SCH ×2 (08:18→20:13)
[2023-03-15] MEDS: Hydroxychloroquine Sulfate 200 MG TAB PO SCH ×2 (08:18→20:13)
[2023-03-15] MEDS: Melatonin 3 MG TAB PO SCH (20:13)
[2023-03-15] MEDS: Atorvastatin Calcium 10 MG TAB PO SCH (20:13)
[2023-03-15] MEDS: traZODone HCl 50 MG TAB PO PRN (20:13)
[2023-03-16 05:34] LABS: Anion Gap 10 mmol/L (10-20); BUN (Urea Nitrogen) 20 mg/dL (8.4-25.7); Calc. Creatinine Clearance 56 mL/min (70-130); Calcium 8.7 mg/dL (7.8-10.44); Carbon Dioxide 24 mmol/L (23-31); Chloride 103 mmol/L (98-107); Estimated GFR 78; Glucose 89 mg/dL (83-110); Potassium 4.4 mmol/L (3.5-5.1); Sodium 133 mmol/L (136-145)
[2023-03-16] MEDS: TRIAMCINOLONE 0.1% CREAM TOP SCH (08:33)
[2023-03-16] MEDS: Multivitamin W/ Minerals 1 TAB PO SCH (08:38)
[2023-03-16] MEDS: Aspirin Chewable 81 MG TAB PO SCH (08:38)
[2023-03-16] MEDS: Hydroxychloroquine Sulfate 200 MG TAB PO SCH ×2 (08:38→20:19)
[2023-03-16] MEDS: Famotidine 20 MG TAB PO SCH ×2 (08:38→20:18)
[2023-03-16] MEDS: Melatonin 3 MG TAB PO SCH (20:17)
[2023-03-16] MEDS: Atorvastatin Calcium 10 MG TAB PO SCH (20:17)
[2023-03-16] MEDS: traZODone HCl 50 MG TAB PO PRN ×2 (20:17→20:19)
[2023-03-17] MEDS: Donepezil HCl 10 MG TAB PO SCH (09:13)
[2023-03-17] MEDS: Multivitamin W/ Minerals 1 TAB PO SCH (09:13)
[2023-03-17] MEDS: Hydroxychloroquine Sulfate 200 MG TAB PO SCH ×2 (09:13→21:29)
[2023-03-17] MEDS: Aspirin Chewable 81 MG TAB PO SCH (09:13)
[2023-03-17] MEDS: Famotidine 20 MG TAB PO SCH ×2 (09:13→21:29)
[2023-03-17] MEDS: Melatonin 3 MG TAB PO SCH (21:29)
[2023-03-17] MEDS: Atorvastatin Calcium 10 MG TAB PO SCH (21:29)
[2023-03-17] MEDS: traZODone HCl 50 MG TAB PO PRN (21:29)
[2023-03-18] MEDS: Multivitamin W/ Minerals 1 TAB PO SCH (07:59)
[2023-03-18] MEDS: Famotidine 20 MG TAB PO SCH ×2 (07:59→21:00)
[2023-03-18] MEDS: Hydroxychloroquine Sulfate 200 MG TAB PO SCH ×2 (07:59→21:00)
[2023-03-18] MEDS: Aspirin Chewable 81 MG TAB PO SCH (07:59)
[2023-03-18] MEDS: TRIAMCINOLONE 0.1% CREAM TOP SCH (08:00)
[2023-03-18] MEDS: Atorvastatin Calcium 10 MG TAB PO SCH (21:00)
[2023-03-18] MEDS: Melatonin 3 MG TAB PO SCH (21:00)
[2023-03-18] MEDS: traZODone HCl 50 MG TAB PO PRN (21:00)
[2023-03-19] MEDS: Aspirin Chewable 81 MG TAB PO SCH (08:31)
[2023-03-19] MEDS: Famotidine 20 MG TAB PO SCH ×2 (08:31→20:23)
[2023-03-19] MEDS: Hydroxychloroquine Sulfate 200 MG TAB PO SCH ×2 (08:31→20:23)
[2023-03-19] MEDS: Donepezil HCl 10 MG TAB PO SCH (08:31)
[2023-03-19] MEDS: Multivitamin W/ Minerals 1 TAB PO SCH (08:31)
[2023-03-19] MEDS: Melatonin 3 MG TAB PO SCH (20:23)
[2023-03-19] MEDS: Atorvastatin Calcium 10 MG TAB PO SCH (20:23)
[2023-03-20] MEDS: Hydroxychloroquine Sulfate 200 MG TAB PO SCH ×2 (08:11→20:06)
[2023-03-20] MEDS: Aspirin Chewable 81 MG TAB PO SCH (08:11)
[2023-03-20] MEDS: TRIAMCINOLONE 0.1% CREAM TOP SCH (08:11)
[2023-03-20] MEDS: Multivitamin W/ Minerals 1 TAB PO SCH (08:11)
[2023-03-20] MEDS: Famotidine 20 MG TAB PO SCH ×2 (08:11→20:06)
[2023-03-20] MEDS: Atorvastatin Calcium 10 MG TAB PO SCH (20:06)
[2023-03-20] MEDS: Melatonin 3 MG TAB PO SCH (20:06)
[2023-03-21] MEDS: Hydroxychloroquine Sulfate 200 MG TAB PO SCH ×2 (08:31→20:04)
[2023-03-21] MEDS: Famotidine 20 MG TAB PO SCH ×2 (08:31→20:05)
[2023-03-21] MEDS: Donepezil HCl 10 MG TAB PO SCH (08:31)
[2023-03-21] MEDS: Multivitamin W/ Minerals 1 TAB PO SCH (08:31)
[2023-03-21] MEDS: Aspirin Chewable 81 MG TAB PO SCH (08:31)
[2023-03-21] MEDS: traZODone HCl 50 MG TAB PO PRN (20:04)
[2023-03-21] MEDS: Melatonin 3 MG TAB PO SCH (20:04)
[2023-03-21] MEDS: Atorvastatin Calcium 10 MG TAB PO SCH (20:05)
[2023-03-22] MEDS: Aspirin Chewable 81 MG TAB PO SCH (08:20)
[2023-03-22] MEDS: Multivitamin W/ Minerals 1 TAB PO SCH (08:20)
[2023-03-22] MEDS: Famotidine 20 MG TAB PO SCH ×2 (08:20→20:34)
[2023-03-22] MEDS: Hydroxychloroquine Sulfate 200 MG TAB PO SCH ×2 (08:20→20:33)
[2023-03-22] MEDS: TRIAMCINOLONE 0.1% CREAM TOP SCH (08:21)
[2023-03-22] MEDS: Atorvastatin Calcium 10 MG TAB PO SCH (20:33)
[2023-03-22] MEDS: Melatonin 3 MG TAB PO SCH (20:34)
[2023-03-22] MEDS: traZODone HCl 50 MG TAB PO PRN (20:34)
[2023-03-23 05:41] LABS: Anion Gap 10 mmol/L (10-20); BUN (Urea Nitrogen) 16 mg/dL (8.4-25.7); Calc. Creatinine Clearance 68 mL/min (70-130); Calcium 8.5 mg/dL (7.8-10.44); Carbon Dioxide 23 mmol/L (23-31); Chloride 104 mmol/L (98-107); Estimated GFR 87; Glucose 98 mg/dL (83-110); Potassium 4.2 mmol/L (3.5-5.1); Sodium 133 mmol/L (136-145)
[2023-03-23] MEDS: Aspirin Chewable 81 MG TAB PO SCH (08:35)
[2023-03-23] MEDS: Hydroxychloroquine Sulfate 200 MG TAB PO SCH ×2 (08:36→20:34)
[2023-03-23] MEDS: Multivitamin W/ Minerals 1 TAB PO SCH (08:36)
[2023-03-23] MEDS: Famotidine 20 MG TAB PO SCH ×2 (08:36→20:33)
[2023-03-23] MEDS: Donepezil HCl 10 MG TAB PO SCH (08:36)
[2023-03-23] MEDS: Melatonin 3 MG TAB PO SCH (20:33)
[2023-03-23] MEDS: traZODone HCl 50 MG TAB PO PRN ×2 (20:33→21:43)
[2023-03-23] MEDS: Atorvastatin Calcium 10 MG TAB PO SCH (20:34)
[2023-03-24] MEDS: TRIAMCINOLONE 0.1% CREAM TOP SCH (09:20)
[2023-03-24] MEDS: Multivitamin W/ Minerals 1 TAB PO SCH (09:20)
[2023-03-24] MEDS: Aspirin Chewable 81 MG TAB PO SCH (09:21)
[2023-03-24] MEDS: Hydroxychloroquine Sulfate 200 MG TAB PO SCH ×2 (09:22→19:54)
[2023-03-24] MEDS: Famotidine 20 MG TAB PO SCH ×2 (09:22→19:54)
[2023-03-24] MEDS: traZODone HCl 50 MG TAB PO PRN (19:54)
[2023-03-24] MEDS: Melatonin 3 MG TAB PO SCH (19:54)
[2023-03-24] MEDS: Atorvastatin Calcium 10 MG TAB PO SCH (19:54)
[2023-03-25] MEDS: Multivitamin W/ Minerals 1 TAB PO SCH (09:25)
[2023-03-25] MEDS: Famotidine 20 MG TAB PO SCH ×2 (09:25→20:25)
[2023-03-25] MEDS: Hydroxychloroquine Sulfate 200 MG TAB PO SCH ×2 (09:25→20:25)
[2023-03-25] MEDS: Aspirin Chewable 81 MG TAB PO SCH (09:25)
[2023-03-25] MEDS: Atorvastatin Calcium 10 MG TAB PO SCH (20:24)
[2023-03-25] MEDS: Melatonin 3 MG TAB PO SCH (20:25)
[2023-03-26] MEDS: TRIAMCINOLONE 0.1% CREAM TOP SCH (09:45)
[2023-03-26] MEDS: Hydroxychloroquine Sulfate 200 MG TAB PO SCH ×2 (09:46→20:37)
[2023-03-26] MEDS: Multivitamin W/ Minerals 1 TAB PO SCH (09:46)
[2023-03-26] MEDS: Famotidine 20 MG TAB PO SCH ×2 (09:46→20:36)
[2023-03-26] MEDS: Aspirin Chewable 81 MG TAB PO SCH (09:46)
[2023-03-26] MEDS: Melatonin 3 MG TAB PO SCH (20:36)
[2023-03-26] MEDS: traZODone HCl 50 MG TAB PO PRN (20:37)
[2023-03-26] MEDS: Atorvastatin Calcium 10 MG TAB PO SCH (20:37)
[2023-03-27] MEDS: Multivitamin W/ Minerals 1 TAB PO SCH (08:36)
[2023-03-27] MEDS: Famotidine 20 MG TAB PO SCH (08:36)
[2023-03-27] MEDS: Hydroxychloroquine Sulfate 200 MG TAB PO SCH (08:36)
[2023-03-27] MEDS: Aspirin Chewable 81 MG TAB PO SCH (08:36)
[2023-03-27 08:47] VITALS: BP 108/69; TEMP 98.5
== END 2023-03-27 14:45 | disposition home or self-care (01) | DRG 947 ==
LOC: MADMS 11:43
PROVIDERS: ADMIT Family Medicine; ATTEND Family Medicine
DX: R53.81 Other malaise (principal); J18.9 Pneumonia, unspecified organism; F03.90 Unspecified dementia, unspecified severity, without behavioral disturbance, psychotic disturbance, mood disturbance, and anxiety; R00.1 Bradycardia, unspecified; I10 Essential (primary) hypertension; E78.5 Hyperlipidemia, unspecified; Z90.49 Acquired absence of other specified parts of digestive tract; Z95.0 Presence of cardiac pacemaker; Z98.890 Other specified postprocedural states; Z79.899 Other long term (current) drug therapy; Z79.82 Long term (current) use of aspirin; M32.9 Systemic lupus erythematosus, unspecified; I25.10 Atherosclerotic heart disease of native coronary artery without angina pectoris; G47.00 Insomnia, unspecified
CPT/HCPCS: 36415; 71045; 80048; Q0162

== ENCOUNTER 2023-06-21 13:02 | Emergency (ER) | payer MEDICARE, OTHER ==
[2023-06-21 13:39] LABS: INR-International Normal Ratio 1.2; Prothrombin Time 15.6 sec (12.0-14.7)
[2023-06-21 13:51] LABS: ALT (SGPT) 21 U/L (8-55); AST (SGOT) 30 U/L (5-34); Albumin 2.6 g/dL (3.4-4.8); Alkaline Phosphatase 71 U/L (40-110); Anion Gap 17 mmol/L (10-20); BUN (Urea Nitrogen) 25 mg/dL (8.4-25.7); Bilirubin, Total 0.6 mg/dL (0.2-1.2); Calc. Creatinine Clearance 0 mL/min (70-130); Calcium 8.9 mg/dL (7.8-10.44); Carbon Dioxide 22 mmol/L (23-31); Chloride 118 mmol/L (98-107); Estimated GFR 67; Globulin 3.9 g/dL (2.4-3.5); Glucose 114 mg/dL (83-110); Lipase 24 U/L (8-78); Magnesium 2.4 mg/dL (1.6-2.6); Potassium 3.8 mmol/L (3.5-5.1); Protein, Total 6.5 g/dL (5.8-8.1); Troponin I 0.048 ng/mL (< 0.028)
[2023-06-21 13:54] LABS: Hematocrit 34.4 % (42.0-52.0); Hemoglobin 11.6 g/dL (14.0-18.0); Mean Corpuscular HGB CONC 33.6 g/dL (32.0-36.0); Mean Corpuscular Hemoglobin 30.1 pg (27.0-31.0); Mean Corpuscular Volume 89.5 fl (78.0-98.0); Mean Platelet Volume 7.5 fL (7.4-10.4); Platelet Count 90 10x3/uL (130-400); RBC Distribution Width 15.3 % (11.5-14.5); Red Blood Cell (RBC) Count 3.85 mill/uL (4.70-6.10); White Blood Cell (WBC) Count 7.1 10x3/uL (4.8-10.8)
[2023-06-21 13:55] LABS: Band 2 % (5-11); Lymphocytes 8 % (21-51); MDiff Complete? YES; Monocytes 6 % (0-10); Neutrophil 81 % (42-75)
[2023-06-21 13:56] LABS: Manual Diff?? YES; Reactive Lymphocytes 3 % (0-10)
[2023-06-21 13:57] LABS: Platelet Adequacy Comment Appears Decreased
[2023-06-21 14:01] LABS: Critical Call Chemistry NUR.OS1@1359; Sodium 153 mmol/L (136-145)
[2023-06-21] MEDS ORDERED: Dextrose 5% in Water 1,000 ML ONE (14:25)
[2023-06-21 14:41] LABS: Bilirubin Small (Negative); Blood, Urine Trace (Negative); Clarity Hazy (Clear); Glucose, Urine (Dipstick) Negative (Negative); Ketone, Urine Negative (Negative); Leukocyte Small (Negative); Nitrite Negative (Negative); Protein, Urine (Dipstick) Trace mg/dL (Neg-Trace); Specific Gravity, Urine 1.021 (1.002-1.036); pH, Urine 5.5 (5.0-9.0)
[2023-06-21 14:44] LABS: Bacteria/HPF Rare-Few HPF (None Seen); CAUTI Indications for Culture Alt mental st,lethar; Mucous/LPF Few LPF (<2+); Squamous Epithelial 0-3 HPF (0-3)
[2023-06-21 14:45] LABS: Urine Culture Reflex Yes Yes
[2023-06-21] MEDS ORDERED: Sodium Chloride 0.9% 100 ML ONE (15:11)
[2023-06-21] MEDS ORDERED: Piperacillin/Tazobactam 3.375 GM VIAL ONE (15:11)
[2023-06-21 16:43] LABS: Lactic Acid 1.7 mmol/L (0.5-2.2)
[2023-06-21 16:44] LABS: Sodium 154 mmol/L (136-145)
== END 2023-06-21 16:48 | disposition short-term general hospital (02) ==
LOC: MADERS 13:02
DX: E86.0 Dehydration (principal); I21.4 Non-ST elevation (NSTEMI) myocardial infarction; E87.0 Hyperosmolality and hypernatremia; D69.6 Thrombocytopenia, unspecified; R62.7 Adult failure to thrive; I10 Essential (primary) hypertension; Z95.0 Presence of cardiac pacemaker; R41.0 Disorientation, unspecified
CPT/HCPCS: 36415; 71045; 80053; 81001; 83605; 83690; 83735; 83880; 84484; 85025; 85610; 85730; 87040; 87077; 87086; 87149; 87186; 93005; 96374; J2543; J3490; J7070